=== PATIENT | male | born 1955 | race Two or more races ===

== ENCOUNTER 2016-06-05 02:15 | Emergency (ER) | payer OTHER ==
[~2016-06-05] VITALS: Ht 170.2 cm; Wt 82.6 kg
[2016-06-05 02:14] VITALS: BP 122/77
[2016-06-05] MEDS ORDERED: PRILOSEC2.5 MG ORAL (02:42)
[2016-06-05] MEDS ORDERED: ZANTAC150 MG ORAL (02:42)
[2016-06-05] MEDS ORDERED: AMLODIPINE BESYL5 MG ORAL (02:42)
[2016-06-05] MEDS ORDERED: NEURONTIN100 MG ORAL (02:42)
[2016-06-05] MEDS ORDERED: ZYRTEC10 MG ORAL (02:42)
[2016-06-05] MEDS ORDERED: ALPRAZOLAM1 MG ORAL (02:42)
[2016-06-05] MEDS ORDERED: TAMSULOSIN HCL0.4 MG ORAL (02:42)
[2016-06-05] MEDS ORDERED: JANUVIA25 MG ORAL (02:42)
[2016-06-05] MEDS ORDERED: GLIPIZIDE5 MG ORAL (02:42)
[2016-06-05] MEDS ORDERED: DOXEPIN HCL25 MG ORAL (02:42)
[2016-06-05] MEDS ORDERED: FLONASE ALLERG9.9 ML NS (02:42)
[2016-06-05] MEDS ORDERED: SENNA8.6 M2 PO (02:42)
[2016-06-05] MEDS ORDERED: LASIX40 MG ORAL (02:42)
[2016-06-05] MEDS ORDERED: PROSCAR5 MG ORAL (02:42)
[2016-06-05] MEDS ORDERED: LOSARTAN POTASS25 MG ORAL (02:42)
[2016-06-05] MEDS ORDERED: COLACE100 MG ORAL (02:42)
[2016-06-05] MEDS ORDERED: VITAMIN D-32000 UNI1 PO (02:42)
[2016-06-05] MEDS ORDERED: PLAVIX75 MG ORAL (02:42)
[2016-06-05] MEDS ORDERED: SILVADENE20 GM TP (02:42)
[2016-06-05] MEDS ORDERED: ATORVASTATIN CA80 MG ORAL (02:42)
--- NOTE | 2016-06-05 02:58 | Emergency Room Report ---
History of Present Illness General Chief Complaint: Syncope Source: Patient, Family Member Present Illness HPI Is a 60-year-old male with history hypertension and renal insufficiency. He presents with chief complaint of head injury and syncope. He took his blood pressure at 9 PM tonight. He got up to use the restroom and felt lightheaded and dizzy. He felt weak. Said that his legs have no strength. He didn't have a syncopal episode. His daughter witnessed this. He said that his skin was clammy and wet. He felt better now. He bumped his head on the wall. Never had this problem before. Allergies: Coded Allergies: No Known Allergies (Unverified , 06/05/16) Patient History Past Medical History: see triage record, old chart reviewed, HTN, renal disease Past Surgical History: other Pertinent Family History: none Social History: Denies: smoking Immunizations: other Reviewed Nursing Documentation: PMH: Agreed, PSxH: Agreed Nursing Documentation-PMH Past Medical History: No History, Except For Hx Cardiac Problems: Yes - 2 strokes Hx Hypertension: Yes Hx Diabetes: Yes Review of Systems Eye: Denies: blurred vision, eye pain ENT: Denies: ear pain, nose congestion, throat swelling Respiratory: Denies: cough, shortness of breath Cardiovascular: Denies: chest pain, palpitations Gastrointestinal: Denies: abdominal pain, diarrhea, nausea, vomiting Musculoskeletal: Denies: back pain, joint pain Skin: Denies: rash Neurological: Denies: headache, numbness Endocrine: Denies: increased thirst, increased urine Hematologic/Lymphatic: Denies: easy bruising All Other Systems: negative except mentioned in HPI Physical Exam Vital Signs Date Time Temp Pulse Resp B/P Pulse Ox O2 Delivery O2 Flow Rate FiO2 06/05/16 02:10 97.7 96 16 122/77 98 Room Air vitals normal Sp02 EP Interpretation: reviewed, normal General Appearance: well appearing, no apparent distress, alert Head: normocephalic, atraumatic Eyes: bilateral eye EOMI, bilateral eye PERRL ENT: hearing grossly normal, normal pharynx Neck: full range of motion, supple, no meningismus Respiratory: chest non-tender, lungs clear, normal breath sounds Cardiovascular #1: regular rate, rhythm, no murmur Gastrointestinal: normal bowel sounds, non tender, no mass, no organomegaly, no bruit, non-distended Musculoskeletal: back normal, gait/station normal, normal range of motion Psychiatric: mood/affect normal Skin: warm/dry Medical Decision Making Diagnostic Impression: Primary Impression: Syncope Qualified Codes: R55 - Syncope and collapse Additional Impressions: Chronic kidney disease (CKD) Qualified Codes: N18.9 - Chronic kidney disease, unspecified Head injury, acute Qualified Codes: S09.90XA - Unspecified injury of head, initial encounter ER Course Patient presents with syncope. Most likely vasovagal secondary to hypotension. He took 100 mg of flow started tonight. We'll cut back to 50 mg. He recently was increase Lasix from 40 mg a day to twice a day. He's also on finasteride and Flomax. I will stop the Flomax. His last creatinine was 2.58 in April of 2015. I looked at his lab from his daughter's phone. I will give him the labs here. He said that he lost about 8-10 pounds in the last month because of increase in Lasix. Patient felt better now. I given a small bolus of fluid here. No evidence of ACS, TIA, CVA, PE, dissection to name a few. Lab Results Impression labs with renal insufficiency EKG Diagnostic Results Rate: normal Rhythm: NSR ST Segments: no acute changes Rhythm Strip Diag. Results EP Interpretation: yes Rate: 95 Rhythm: NSR, no PVC's, no ectopy Chest X-Ray Diagnostic Results EP Interpretation: Yes Findings: no consolidation, no effusion, no pneumothorax, no acute cardiopulmonary disease Number of Views: 1 CT/MRI/US Diagnostic Results CT/MRI/US Diagnostic Results : Imaging Test Ordered: CT head Impression negative per radiologist. Last Vital Signs Date Time Temp Pulse Resp B/P Pulse Ox O2 Delivery O2 Flow Rate FiO2 06/05/16 02:14 97.7 96 16 122/77 98 Room Air Status: improved Disposition: HOME, SELF-CARE Condition: Stable Additional Instructions: Followup with your DrAlexandro in 2-5 days. Return if symptom worsen. Cut your losartan 250 mg a day. Stop the Flomax. Bring your labs to your appointment. ELIZA ALBA M.D. Jun 05, 2016 02:58
[2016-06-05 03:00] VITALS: BP 101/62
[2016-06-05 03:02] LABS: ALBUMIN/GLOBULIN RATIO 1.5 (1.0-2.7); CALCIUM 8.2 mg/dL (8.6-10.2); CREATININE 3.2 mg/dL (0.7-1.2); GLOMERULAR FILTRATION RATE 19.8 mL/min (>60); POTASSIUM 3.8 mEQ/L (3.4-4.9); TOTAL PROTEIN 5.8 g/dL (6.6-8.7)
[2016-06-05 03:20] LABS: BASOPHILS % (AUTO) 1.5 % (0.0-2.0); LYMPHOCYTES % (AUTO) 13.3 % (20.0-45.0); MEAN CORPUSCULAR HEMOGLOBIN 30.9 PG (27.0-31.0); MEAN CORPUSCULAR HGB CONC 34.3 G/DL (32.0-36.0); MEAN CORPUSCULAR VOLUME 90 FL (80-99); MEAN PLATELET VOLUME 8.1 FL (6.5-10.1); MONOCYTES % (AUTO) 5.6 % (1.0-10.0); NEUTROPHILS % (AUTO) 74.7 % (45.0-75.0); PLATELET COUNT 165 K/UL (150-450); RED BLOOD COUNT 4.39 M/UL (4.70-6.10); WHITE BLOOD COUNT 10.4 K/UL (4.8-10.8)
[2016-06-05 03:28] LABS: TROPONIN I < 0.30 ng/mL (<=0.30)
[2016-06-05 03:51] LABS: CKMB 4.2 ng/mL (< 6.7)
[2016-06-05 04:00] VITALS: BP 109/63
[2016-06-05 04:43] VITALS: BP 109/63
--- NOTE | 2016-06-05 08:35 | Diagnostic Imaging Report ---
Indications: Fall, head trauma, altered mental status Technique: Continuous helical CT imaging of the brain was performed with nonionic exposure control on a Siemens sensation [address] scanner. Axial and coronal images were reconstructed at 5 mm slice thickness and interval. CTDI volume(s): 70 mGy Total DLP: 1351 mGy-cm Findings: Comparison: None Mild low attenuation is present in the bilateral periventricular white matter. Ventricles, cisterns, and sulci are only, diffusely prominent. No evidence of mass or hemorrhage, mass effect, midline shift, hydrocephalus, or increased intracranial pressure. Bone window images are unremarkable. Visualized paranasal sinuses and mastoid air cells are clear. IMPRESSION: No evidence of acute injury or other acute intracranial pathology Bilateral cerebral periventricular white matter low attenuation, nonspecific, likely chronic microvascular ischemic in nature. Mild atrophy. This correlates with preliminary report generated overnight by [employer]. The CT scanner at [facility] [place] is accredited by the [employer] and the scans are performed using protocols designed to limit radiation exposure to as low as reasonably achievable to attain images of sufficient resolution adequate for diagnostic evaluation.
--- NOTE | 2016-06-05 08:35 | Diagnostic Imaging Report ---
Indication: Chest pain, syncope Technique: Single portable AP view of the chest. Findings: Comparison: None. Soft tissue convexity left cardiophrenic angle. The bones and extra pulmonary soft tissues, cardiomediastinal silhouette, pulmonary vasculature and parenchyma, and pleural surfaces are otherwise unremarkable. IMPRESSION: Probable prominent epicardial fat pad left cardiophrenic angle. Otherwise negative Portable AP chest.
== END 2016-06-05 04:50 | disposition home or self-care (01) ==
LOC: EDBD 02:15 → EMR 02:44
DX: R55 Syncope and collapse (principal); S09.90XA Unspecified injury of head, initial encounter; I12.9 Hypertensive chronic kidney disease with stage 1 through stage 4 chronic kidney disease, or unspecified chronic kidney disease; E11.22 Type 2 diabetes mellitus with diabetic chronic kidney disease; N18.9 Chronic kidney disease, unspecified; Z86.73 Personal history of transient ischemic attack (TIA), and cerebral infarction without residual deficits
CPT/HCPCS: 36415; 70450; 71010; 80053; 82550; 82553; 84484; 85025; 93005; 96374

== ENCOUNTER 2016-09-03 22:45 | Emergency (ER) | payer OTHER ==
[~2016-09-03] VITALS: Ht 167.6 cm; Wt 78.5 kg
[~2016-09-03 22:45] MED LIST: ALPRAZOLAM1 MG ORAL; AMLODIPINE BESYL5 MG ORAL; ATORVASTATIN CA80 MG ORAL; COLACE100 MG ORAL; DOXEPIN HCL25 MG ORAL; FLONASE ALLERG9.9 ML NS; GLIPIZIDE5 MG ORAL; JANUVIA25 MG ORAL; LASIX40 MG ORAL; LOSARTAN POTASS25 MG ORAL; NEURONTIN100 MG ORAL; PLAVIX75 MG ORAL; PRILOSEC2.5 MG ORAL; PROSCAR5 MG ORAL; SENNA8.6 M2 PO; SILVADENE20 GM TP; TAMSULOSIN HCL0.4 MG ORAL; VITAMIN D-32000 UNI1 PO; ZANTAC150 MG ORAL; ZYRTEC10 MG ORAL
--- NOTE | 2016-09-03 23:08 | Emergency Room Report ---
History of Present Illness General Chief Complaint: Male Urogenital Problems Source: Patient Present Illness HPI Is a 60-year-old male with multiple medical problem. He presents to complaint of dysuria, frequency, urgency the last few days. No fever or chills. No nausea no vomiting. No back pain. Worse with urination. Allergies: Coded Allergies: No Known Allergies (Unverified , 06/05/16) Patient History Past Medical History: see triage record, old chart reviewed, DM, HTN, CVA/TIA Past Surgical History: none Pertinent Family History: none Social History: Denies: smoking Immunizations: other Reviewed Nursing Documentation: PMH: Agreed Nursing Documentation-PMH Hx Cardiac Problems: Yes - 2 strokes Hx Hypertension: Yes Hx Diabetes: Yes Hx Cerebrovascular Accident: Yes - STROKE ON 2011, LEFT SIDE WEAKNESS Review of Systems Eye: Denies: blurred vision, eye pain ENT: Denies: ear pain, nose congestion, throat swelling Respiratory: Denies: cough, shortness of breath Cardiovascular: Denies: chest pain, palpitations Gastrointestinal: Denies: abdominal pain, diarrhea, nausea, vomiting Genitourinary: Reports: dysuria, frequency, urgency Musculoskeletal: Denies: back pain, joint pain Skin: Denies: rash Neurological: Denies: headache, numbness Endocrine: Denies: increased thirst, increased urine Hematologic/Lymphatic: Denies: easy bruising All Other Systems: negative except mentioned in HPI Physical Exam Vital Signs Date Time Temp Pulse Resp B/P Pulse Ox O2 Delivery O2 Flow Rate FiO2 09/03/16 22:50 97.9 91 18 206/101 97 Room Air vitals with hypertension Sp02 EP Interpretation: reviewed, normal General Appearance: well appearing, no apparent distress, alert Head: normocephalic, atraumatic Eyes: bilateral eye EOMI, bilateral eye PERRL ENT: hearing grossly normal, normal pharynx Neck: full range of motion, supple, no meningismus Respiratory: chest non-tender, lungs clear, normal breath sounds Cardiovascular #1: regular rate, rhythm, no murmur Gastrointestinal: normal bowel sounds, non tender, no mass, no organomegaly, no bruit, non-distended Musculoskeletal: back normal, gait/station normal, normal range of motion Neurologic: alert, oriented x3 Psychiatric: mood/affect normal Skin: warm/dry Medical Decision Making Diagnostic Impression: Primary Impression: BPH (benign prostatic hyperplasia) Qualified Codes: N40.0 - Benign prostatic hyperplasia without lower urinary tract symptoms Additional Impression: Hypertension Qualified Codes: I10 - Essential (primary) hypertension ER Course Patient with symptom of BPH. A Pedraza was placed and there was only 200 mL urine output. No evidence of infection. We'll discharge home. Last Vital Signs Date Time Temp Pulse Resp B/P Pulse Ox O2 Delivery O2 Flow Rate FiO2 09/03/16 22:50 97.9 91 18 206/101 97 Room Air Status: improved Disposition: HOME, SELF-CARE Condition: Stable Scripts Tamsulosin Hcl (TAMSULOSIN HCL*) 0.4 Mg Cap.er.24h 0.4 MG ORAL BEDTIME, #30 CAP Prov: ELIZA ALBA M.D. 09/03/16 Additional Instructions: Followup with your DrAlexandro in 7 days. Return if symptom worsen. Take her blood pressure medication. ELIZA ALBA M.D. Sep 03, 2016 23:08
[2016-09-03 23:14] VITALS: BP 197/92
[2016-09-03] MEDS ORDERED: JANUVIA25 MG ORAL (23:14)
[2016-09-03] MEDS ORDERED: FUROSEMIDE40 MG ORAL (23:14)
[2016-09-03] MEDS ORDERED: AMLODIPINE BESY10 MG ORAL (23:14)
[2016-09-03] MEDS ORDERED: GLIPIZIDE5 MG ORAL (23:14)
[2016-09-03] MEDS ORDERED: VITAMIN D400 INTLU ORAL (23:14)
[2016-09-03 23:39] LABS: APPEARANCE,URINE CLEAR; KETONES,URINE NEGATIVE (NEGATIVE); LEUKOCYTE ESTERASE ,URINE NEGATIVE (NEGATIVE); NITRITE,URINE NEGATIVE (NEGATIVE); PH,URINE 6 (4.5-8.0); PROTEIN,URINE 3+ (NEGATIVE); UROBILINOGEN,URINE NORMAL MG/DL (0.0-1.0)
[2016-09-03 23:50] LABS: SQUAMOUS EPITHELIAL CELL,UR FEW /LPF (NONE/OCC); WBC,URINE 0 /HPF (0 - 0)
[2016-09-03] MEDS ORDERED: TAMSULOSIN HCL0.4 MG ORAL (23:51)
[2016-09-04 00:05] VITALS: BP 197/92
== END 2016-09-04 00:05 | disposition home or self-care (01) ==
LOC: EMR 23:32
DX: N40.0 Benign prostatic hyperplasia without lower urinary tract symptoms (principal); I10 Essential (primary) hypertension; E11.9 Type 2 diabetes mellitus without complications; I69.854 Hemiplegia and hemiparesis following other cerebrovascular disease affecting left non-dominant side
CPT/HCPCS: 51701; 81003